=== PATIENT | female | born 1955 | race Caucasian/White ===

== ENCOUNTER → 2017-03-28 | Outpatient (CLI) | payer OTHER ==
[~2017-03-28] MED LIST: LANS30CA PO; METF500T4 PO; OXYB10TA PO; PRAV40TA2 PO
== END | disposition home or self-care (01) ==
LOC: CFH 12:28
PROVIDERS: ATTEND Neurological Surgery
DX: M51.37 Other intervertebral disc degeneration, lumbosacral region (principal); M51.16 Intervertebral disc disorders with radiculopathy, lumbar region; M51.36 Other intervertebral disc degeneration, lumbar region; M43.16 Spondylolisthesis, lumbar region; M25.78 Osteophyte, vertebrae
CPT/HCPCS: 72148

== ENCOUNTER 2017-05-30 08:51 | Inpatient (IN) | payer OTHER ==
[~2017-05-30] VITALS: Ht 167.6 cm; Wt 76.0 kg
[~2017-05-30 08:51] MED LIST changes: +BACITRACIN 50,000 UNIT ONE; +BACITRACIN OINT 500U/GM, 15 GM ONE; +BUPIVACAINE/PF 0.25% ONE; +CEFAZOLIN 1,000 MG ONE; +DEXAMETHASONE 4 MG/ML, 1ML ONE; +EPINEPHRINE 1 MG/ML, 1ML ONE; +FENTANYL PF 250 MCG/5ML ONE; +GLYCOPYRROLATE 0.2MG/1ML, 5ML ONE; +LACT1CAP37 PO; +MIDAZOLAM 1 MG/ML, 2ML ONE; +MULT-658 PO; +NEOSTIGMINE 1 MG/ML, 10ML ONE; +OMEP-110 PO; +ONDANSETRON 2MG/ML, 2ML ONE; +PROPOFOL 10 MG/ML, 20ML ONE; +PROPOFOL 100 ML ONE; +ROCURONIUM 10 MG/ML,10ML ONE; +SUCCINYLCHOLINE 20 MG/ML, 10ML ONE; +THROMBIN 5,000 UNIT VIAL TP ONE; +VITA400C43 PO; +fenofibrate PO
[2017-05-30] MEDS ORDERED: LACTATED RINGERS 1,000 ML IV SCH (09:17)
[2017-05-30] MEDS ORDERED: PNEUMOCOCCAL 23 VACCINE IM-VACC ONE (09:30)
[2017-05-30] MEDS ORDERED: LIDOCAINE 1%, 2ML SQ PRN (09:30)
[2017-05-30] MEDS ORDERED: PHENYLEPHRINE 10 MG/ML ONE (10:35)
[2017-05-30] MEDS ORDERED: hydrALAzine 20 MG/ML, 1ML IV PRN (12:00)
[2017-05-30] MEDS ORDERED: ONDANSETRON 2MG/ML, 2ML IVPush PRN (12:00)
[2017-05-30] MEDS ORDERED: HYDROmorphone 1 MG/ML, 1ML IV PRN (12:00)
[2017-05-30] MEDS ORDERED: PROMETHAZINE 25 MG/ML, 1ML IV PRN (12:00)
[2017-05-30] MEDS ORDERED: FENTANYL PF 100 MCG/2ML IV PRN (12:00)
[2017-05-30] MEDS ORDERED: OXYcodone 5 MG/5 ML ORAL.SOL UDC PO PRN (12:00)
[2017-05-30] MEDS ORDERED: LABETALOL 5MG/ML, 20ML IV PRN ×2 (12:00→17:30)
[2017-05-30] MEDS ORDERED: ACETAMINOPHEN 325 MG TABLET PO PRN (12:00)
[2017-05-30] MEDS ORDERED: HYDROmorphone 2 MG/ML, 1ML ONE (12:02)
[2017-05-30] MEDS ORDERED: LIDOCAINE-MPF 2% ,5ML ONE (12:17)
[2017-05-30] MEDS ORDERED: LIDOCAINE 4%, 4 ML SYR/CANN TP ONE (12:37)
[2017-05-30] MEDS ORDERED: FENTANYL PF 100 MCG/2ML ONE (15:27)
[2017-05-30] MEDS ORDERED: HYDROmorphone 1 MG/ML, 1ML ONE (15:27)
[2017-05-30] MEDS ORDERED: ACETAMINOPHEN 650 MG/20.3 ML UDC ONE (15:48)
[2017-05-30] MEDS ORDERED: OXYcodone 5 MG/5 ML ORAL.SOL UDC ONE (15:49)
[2017-05-30 16:50] VITALS: BP 112/61
[2017-05-30] MEDS ORDERED: HYDROmorphone 2 MG/ML, 1ML IM PRN (17:30)
[2017-05-30] MEDS ORDERED: MAGNESIUM HYDROXIDE 8%, 30ML UDC PO PRN (17:30)
[2017-05-30] MEDS ORDERED: ONDANSETRON 2MG/ML, 2ML IV PRN (17:30)
[2017-05-30] MEDS ORDERED: DIPHENHYDRAMINE 50 MG/ML, 1ML IM PRN (17:30)
[2017-05-30] MEDS ORDERED: DIPHENHYDRAMINE 50 MG/ML, 1ML IVPush PRN (17:30)
[2017-05-30] MEDS ORDERED: HYDROcodone/APAP 5/325 TABLET PO PRN (17:30)
[2017-05-30] MEDS ORDERED: PROMETHAZINE 25 MG/ML, 1ML IM PRN (17:30)
[2017-05-30] MEDS ORDERED: BISACODYL 10 MG SUPP PR PRN (17:30)
[2017-05-30] MEDS ORDERED: METHOCARBAMOL 1,000 MG in DEXTROSE 5% 100 ML IV ONE (18:00)
[2017-05-30] MEDS: NS + 20MEQ KCL 1,000 ML IV SCH (18:08)
[2017-05-30 18:46] VITALS: BP 155/88
[2017-05-30] MEDS: CEFAZOLIN PMX 1GM/50ML 50 ML IVPB SCH (19:02)
[2017-05-30] MEDS: OXYcodone/APAP 5/325MG TABLET PO PRN (19:47)
[2017-05-30] MEDS: PRAVASTATIN 40 MG TABLET PO SCH (19:48)
[2017-05-31] MEDS: OXYcodone/APAP 5/325MG TABLET PO PRN ×3 (00:13→22:47)
[2017-05-31] MEDS: DIPHENHYDRAMINE 50 MG CAPSULE PO PRN ×2 (00:13→22:47)
[2017-05-31] MEDS: METHOCARBAMOL 750 MG in DEXTROSE 5% 100 ML IV SCH ×3 (02:13→18:05)
[2017-05-31] MEDS: HYDROmorphone 2MG TABLET PO PRN ×4 (02:32→20:05)
[2017-05-31 02:59] VITALS: BP 132/72
[2017-05-31] MEDS: NS + 20MEQ KCL 1,000 ML IV SCH ×3 (04:02→23:30)
[2017-05-31] MEDS: CEFAZOLIN PMX 1GM/50ML 50 ML IVPB SCH (04:02)
[2017-05-31 05:13] LABS: HEMOGLOBIN 13.5 g/dL (11.7-16.4); WHITE BLOOD COUNT 16.3 x10^3/uL (3.4-10)
[2017-05-31 05:23] LABS: BLOOD UREA NITROGEN 9 mg/dL (7-18)
[2017-05-31] MEDS: ENOXAPARIN 40 MG/0.4 ML SQ SCH (06:00)
[2017-05-31 07:22] VITALS: BP 159/79
[2017-05-31] MEDS: OXYBUTYNIN CHLORIDE 5 MG TABLET PO SCH (07:54)
[2017-05-31] MEDS: MULTIVITAMIN 1 TABLET PO SCH (07:55)
[2017-05-31] MEDS: OMEPRAZOLE 20 MG CAPSULE.DR PO SCH (07:55)
[2017-05-31] MEDS ORDERED: SENNA/DOCUSATE TABLET PO SCH (09:00)
[2017-05-31] MEDS: FENOFIBRATE 145 MG TABLET PO SCH (10:25)
[2017-05-31 12:35] VITALS: BP 123/66
[2017-05-31 19:01] VITALS: BP 126/76
[2017-05-31] MEDS: SENNA/DOCUSATE TABLET PO SCH (20:05)
[2017-05-31] MEDS: PRAVASTATIN 40 MG TABLET PO SCH (20:05)
[2017-05-31] MEDS ORDERED: NICOTINE 7 MG/24 HR PATCH.TD24 TD SCH (21:00)
[2017-06-01 01:24] VITALS: BP 148/68
[2017-06-01] MEDS: HYDROmorphone 2MG TABLET PO PRN (02:11)
[2017-06-01] MEDS: METHOCARBAMOL 750 MG in DEXTROSE 5% 100 ML IV SCH ×3 (02:11→18:43)
[2017-06-01 05:15] LABS: HEMATOCRIT 33.6 % (34.6-47.8); HEMOGLOBIN 11.4 g/dL (11.7-16.4); WHITE BLOOD COUNT 14.7 x10^3/uL (3.4-10)
[2017-06-01 07:15] VITALS: BP 158/79
[2017-06-01] MEDS: OXYBUTYNIN CHLORIDE 5 MG TABLET PO SCH (07:23)
[2017-06-01] MEDS: OMEPRAZOLE 20 MG CAPSULE.DR PO SCH (07:23)
[2017-06-01] MEDS: MULTIVITAMIN 1 TABLET PO SCH (07:23)
[2017-06-01] MEDS: FENOFIBRATE 145 MG TABLET PO SCH (07:23)
[2017-06-01] MEDS: OXYcodone/APAP 5/325MG TABLET PO PRN ×3 (07:23→17:09)
[2017-06-01] MEDS: ENOXAPARIN 40 MG/0.4 ML SQ SCH (07:24)
[2017-06-01] MEDS: NS + 20MEQ KCL 1,000 ML IV SCH ×2 (07:24→18:43)
[2017-06-01] MEDS ORDERED: HYDROmorphone 2 MG/ML, 1ML IV PRN (09:30)
[2017-06-01] MEDS: KETOROLAC 30 MG/1 ML IV PRN (11:12)
[2017-06-01 13:40] VITALS: BP 116/71
[2017-06-01 18:39] VITALS: BP 115/60
[2017-06-01] MEDS: PRAVASTATIN 40 MG TABLET PO SCH (23:25)
[2017-06-01] MEDS: NICOTINE 14MG/24 HR PATCH.TD24 TD SCH (23:25)
[2017-06-01] MEDS: SENNA/DOCUSATE TABLET PO SCH (23:25)
[2017-06-02 00:47] VITALS: BP 147/74
[2017-06-02] MEDS: PRAVASTATIN 40 MG TABLET PO SCH (00:52)
[2017-06-02] MEDS: SENNA/DOCUSATE TABLET PO SCH (00:52)
[2017-06-02] MEDS: NICOTINE 14MG/24 HR PATCH.TD24 TD SCH (00:52)
[2017-06-02] MEDS: OXYcodone/APAP 5/325MG TABLET PO PRN (00:53)
[2017-06-02] MEDS: DIPHENHYDRAMINE 50 MG CAPSULE PO PRN (00:53)
[2017-06-02] MEDS: KETOROLAC 30 MG/1 ML IV PRN ×2 (00:53→08:27)
[2017-06-02] MEDS: NS + 20MEQ KCL 1,000 ML IV SCH (02:22)
[2017-06-02 05:59] LABS: HEMATOCRIT 30.7 % (34.6-47.8); HEMOGLOBIN 10.4 g/dL (11.7-16.4)
[2017-06-02] MEDS ORDERED: METHOCARBAMOL 750 MG TABLET PO PRN (06:00)
[2017-06-02 07:25] VITALS: BP 132/76
[2017-06-02] MEDS: ENOXAPARIN 40 MG/0.4 ML SQ SCH (08:18)
[2017-06-02] MEDS: OXYBUTYNIN CHLORIDE 5 MG TABLET PO SCH (08:27)
[2017-06-02] MEDS: MULTIVITAMIN 1 TABLET PO SCH (08:27)
[2017-06-02] MEDS: FENOFIBRATE 145 MG TABLET PO SCH (08:27)
[2017-06-02] MEDS: OMEPRAZOLE 20 MG CAPSULE.DR PO SCH (08:27)
[2017-06-02] MEDS ORDERED: PNEUMOCOCCAL 23 VACCINE IM-VACC ONE ×2 (10:30→12:00)
[2017-06-02] MEDS ORDERED: OXYC-302 PO (11:01)
[2017-06-02] MEDS ORDERED: METH750T87 PO (11:01)
[2017-06-02] MEDS ORDERED: POLY17PO5 PO (11:02)
== END 2017-06-02 11:32 | disposition home or self-care (01) | DRG 460 ==
LOC: ORIP 08:51 → 4NOR 16:50 → DCLOUNGE 06-02 10:47
PROVIDERS: ADMIT Neurological Surgery; ATTEND Neurological Surgery
PROC: 01NB0ZZ Release Lumbar Nerve, Open Approach (ICD-10-PCS; 2017-05-30)
PROC: 0SB20ZZ Excision of Lumbar Vertebral Disc, Open Approach (ICD-10-PCS; 2017-05-30)
PROC: 4A11X4G Monitoring of Peripheral Nervous Electrical Activity, Intraoperative, External Approach (ICD-10-PCS; 2017-05-30)
PROC: 0SG10AJ Fusion of 2 or more Lumbar Vertebral Joints with Interbody Fusion Device, Posterior Approach, Anterior Column, Open Approach (ICD-10-PCS; principal; 2017-05-30 11:00)
DX: M48.062 Spinal stenosis, lumbar region with neurogenic claudication (principal); M43.16 Spondylolisthesis, lumbar region; M47.26 Other spondylosis with radiculopathy, lumbar region; M51.16 Intervertebral disc disorders with radiculopathy, lumbar region; Z82.49 Family history of ischemic heart disease and other diseases of the circulatory system; Z91.048 Other nonmedicinal substance allergy status; Z23 Encounter for immunization
CPT/HCPCS: 36415; 72100; 80048; 85025; 86850; 86900; 90732; C1713; C1729; J0171; J0690; J1100; J1170; J1650; J1885; J2250; J2405; J2704; J2710; J3010; J3480; J3490; C1762; J0330; J2370; J2800; J7120